=== PATIENT | female | born 1990 | race Caucasian/White ===

== ENCOUNTER 2019-10-12 19:24 | Inpatient (IN) | payer MEDICAID ==
[~2019-10-12] VITALS: Ht 165.1 cm; Wt 73.0 kg
[2019-10-12 19:30] VITALS: BP_SYST 107
--- NOTE | 2019-10-12 19:30 | NUR ---
PT TRIAGED AND PLACED IN WAITING ROOM. PT GIVEN URINE SPECIMEN CUP FOR COLLECTION. NO ACUTE DISTRESS AT THIS TIME.
--- NOTE | 2019-10-12 20:06 | NUR ---
Patient to ER bed 1 to gown for evaluation. Side rails up.
--- NOTE | 2019-10-12 20:16 | NUR ---
PT C/O UPPER RIGHT QUADRANT PAIN THAT STARTED YESTERDAY. PT HX OF END STAGE LIVER CIRRHOSIS. PT MOVED FROM [place] YESTERDAY AND STOPPED TAKING HER LACTULOSE BECAUSE SHE WAS GETTING ON A PLANE. PT LAST BOWEL MOVEMENT WAS YESTERDAY. PT C/O OF NAUSEA, DIZZINESS, LIGHTHEADED, WEAKNESS. PT HAS BEEN RECEIVING CARE IN [place] FOR PAST THREE MONTHS AND NEEDS A LIVER TRANSPLANT, ACCORDING TO PT.
--- NOTE | 2019-10-12 20:30 | NUR ---
# 20 gauge angiocath placed to LAC. Use of asceptic technique. Opsite placed over site. Blood return noted. Blood for lab drawn from site. Flushed with 10 cc of normal saline. No evidence of infiltration noted. Patient tolerated well.
--- NOTE | 2019-10-12 20:32 | NUR ---
LAB AT BEDSIDE
[2019-10-12 20:43] LABS: BILIRUBIN,URINE 3+ (NEGATIVE); BLOOD, URINE 1+ (NEGATIVE); COLOR,URINE ORANGE (YELLOW); GLUCOSE,URINE NEGATIVE (NEGATIVE); KETONES,URINE TRACE (NEGATIVE); LEUKOCYTE ESTERASE ,URINE TRACE (NEGATIVE); NITRITE, URINE NEGATIVE (NEGATIVE); PH,URINE 6.5 (5.0-8.0); PROTEIN URINE NEGATIVE (NEGATIVE); UROBILINOGEN,URINE 0.2 (0.2-1.0)
[2019-10-12] MEDS ORDERED: MORPHINE 2 MG/ML INJ. SYRINGE IVP ONE (21:15)
[2019-10-12 21:17] LABS: BASOPHILS % (AUTO) 0.3 % (0.0-2.0); EOSINOPHILS % (AUTO) 0.4 % (0.0-4.0); HEMATOCRIT 23.6 % (36-48); LYMPHOCYTES # (AUTO) 1.5 K/uL (1.0-5.5); MEAN CORPUSCULAR HEMOGLOBIN 35 pg (27-31); MEAN CORPUSCULAR HGB CONC 34 % (32-36); MEAN CORPUSCULAR VOLUME 103 fL (79.0-98.0); MONOCYTES # (AUTO) 1.1 K/uL (0.0-1.0); MONOCYTES % (AUTO) 11.1 % (1.7-9.3); NEUTROPHILS # (AUTO) 6.9 K/uL (1.8-7.7); NEUTROPHILS % (AUTO) 72.2 % (40.0-70.0); PLATELET COUNT (AUTO) 110 K/uL (130-430); RED CELL DISTRIBUTION WIDTH 24.2 % (9.0-15.0); WHITE BLOOD COUNT (AUTO) 9.6 K/uL (4.8-10.8)
--- NOTE | 2019-10-12 21:25 | NUR ---
pt resting in bed. breathing even and unlabored. vital signs stable.
[2019-10-12 21:43] LABS: CALCIUM 8.5 mg/dL (8.4-11.0); CREATININE 0.53 mg/dL (0.55-1.30); POTASSIUM 3.5 mmol/L (3.5-5.1)
[2019-10-12 21:55] LABS: ALBUMIN 3.4 g/dL (3.4-4.8)
[2019-10-12 22:08] LABS: CLARITY/URINE HAZY (CLEAR)
[2019-10-12 22:29] LABS: BACTERIA,URINE MODERATE /HPF (None Seen); WBC,URINE 0-3 /HPF (0-3)
[2019-10-12 22:41] LABS: TOTAL BILIRUBIN 33.6 mg/dL (0.0-1.0)
--- NOTE | 2019-10-12 22:45 | NUR ---
Critical value of Total bilirubin 33.6
[2019-10-12] MEDS ORDERED: cefTRIAXone 1 GM IVPB PREMIX 50 ML IV ONE ×2 (23:00→23:15)
[2019-10-12] MEDS ORDERED: HYDROcodone/ACETAMIN 5-325 MG TAB (NORCO/ VICODIN) PO ONE (23:00)
[2019-10-12] MEDS ORDERED: PRO40 PO (23:13)
[2019-10-12] MEDS ORDERED: FOLI-43 PO (23:13)
[2019-10-12] MEDS ORDERED: RIFA550T5 PO (23:13)
[2019-10-12] MEDS ORDERED: LACT10SO6 PO (23:13)
[2019-10-12] MEDS ORDERED: PROP80TA4 PO (23:13)
--- NOTE | 2019-10-12 23:13 | NUR ---
medication reconciled does not know dosages.
--- NOTE | 2019-10-12 23:24 | NUR ---
DR. GOEL AT BEDSIDE.
[2019-10-12 23:36] LABS: INR 2.7 (0.8-1.2); PROTHROMBIN TIME 26.8 SECS (9.5-12.5)
--- NOTE | 2019-10-12 23:37 | NUR ---
pt pain 8/10. pt BP is 97/49. norco held per md verbal order.
[2019-10-13] MEDS ORDERED: ALBUMIN HUMAN 5% 250 ML IV ONE (00:30)
[2019-10-13] MEDS ORDERED: FAMOTIDINE PF 20 MG/2 ML VIAL IVP ONE (00:30)
--- NOTE | 2019-10-13 00:34 | NUR ---
Patient's code status is FULL CODE paperwork completed and placed in chart.
[2019-10-13] MEDS ORDERED: PIPERACILLIN/TAZOBACTAM 3.375 GM/VIAL (ZOSYN) IV ONE (00:42)
[2019-10-13] MEDS ORDERED: PHYTONADIONE 10 MG/ML AMP SUBCUT ONE (00:45)
[2019-10-13] MEDS ORDERED: ALBUMIN HUMAN 25% 100 ML IV ONE (01:00)
--- NOTE | 2019-10-13 01:29 | NUR ---
pt resting in bed. breathing even and unlabored. vital signs stable. iv fluids running as ordered. no signs of infiltration.
[2019-10-13] MEDS: D5LR 1,000 ML IV SCH ×2 (02:37→15:30)
--- NOTE | 2019-10-13 02:44 | NUR ---
pt resting in bed. breathing even and unlabored. vital signs stable. iv fluids running as ordered. no signs of infiltration.
[2019-10-13] MEDS ORDERED: FAMOTIDINE PF 20 MG/2 ML VIAL ONE ×2 (02:55→21:12)
--- NOTE | 2019-10-13 03:11 | NUR ---
patient using bedside commode. no lightheadness or dizziness when standing.
--- NOTE | 2019-10-13 03:42 | NUR ---
pt transitioned onto a hospital bed in ER 1.
--- NOTE | 2019-10-13 04:29 | NUR ---
pt resting in bed. breathing even and unlabored. vital signs stable. iv fluids running as ordered. no signs of infiltration.
--- NOTE | 2019-10-13 05:29 | NUR ---
pt resting in bed. breathing even and unlabored. vital signs stable. iv fluids running as ordered. no signs of infiltration.
--- NOTE | 2019-10-13 06:29 | NUR ---
pt resting in bed. breathing even and unlabored. vital signs stable. iv fluids running as ordered. no signs of infiltration.
[2019-10-13] MEDS: PANTOPRAZOLE SODIUM 40 MG TAB PO SCH (06:55)
--- NOTE | 2019-10-13 07:12 | NUR ---
report given to LAURI Bryant for continuation of care.
--- NOTE | 2019-10-13 07:15 | NUR ---
Assumed care of patient, report received from LAURI Helton. Pt currently resting in bed, will continue to monitor.
--- NOTE | 2019-10-13 08:30 | NUR ---
Called pharmacy for morning meds.
[2019-10-13] MEDS ORDERED: LACTULOSE 20 GM/30 ML UDC PO ONE (09:00)
[2019-10-13] MEDS ORDERED: LACTULOSE 20 GM/30 ML UDC PO SCH (09:00)
[2019-10-13] MEDS ORDERED: PROPRANOLOL HCL 10 MG TABLET (INDERAL) PO SCH (09:00)
[2019-10-13] MEDS ORDERED: PROPRANOLOL HCL 10 MG TABLET (INDERAL) PO ONE (09:00)
--- NOTE | 2019-10-13 09:30 | NUR ---
Dr. Shaw at bedside for GI consult.
--- NOTE | 2019-10-13 10:30 | NUR ---
Radiology at bedside for abdominal US.
[2019-10-13] MEDS: PROPRANOLOL HCL 10 MG TABLET (INDERAL) PO SCH (10:54)
--- NOTE | 2019-10-13 11:00 | NUR ---
Inderal held due to low BP
--- NOTE | 2019-10-13 11:00 | NUR ---
Pt refused morning lactulose dose, MD aware.
[2019-10-13] MEDS: THIAMINE HCL 100 MG TABLET PO SCH (11:07)
[2019-10-13] MEDS: FOLIC ACID 1 MG TABLET PO SCH (11:07)
[2019-10-13] MEDS: RIFAXIMIN 550 MG TABLET PO SCH ×2 (11:07→21:39)
[2019-10-13] MEDS: prednisoLONE 15 MG/5 ML UDC PO SCH (11:08)
[2019-10-13] MEDS: FAMOTIDINE PF 20 MG/2 ML VIAL IVP SCH ×2 (11:08→20:58)
--- NOTE | 2019-10-13 11:30 | NUR ---
manager eligibility at bedside
--- NOTE | 2019-10-13 13:45 | NUR ---
DC Planning: Received transfer to [facility] for liver transplant. The pt is in ER holding at this time. I spoke with pt , she is aaox4, ambulatory, jaundice, ascites. She just arrived here yesterday from [place]. No photo ID with her, stated her sister will bring it in. I explained the transfer process to [facility] that , she will need a proof of [facility] residency, currently she has a [place] ID. she will need to apply for [facility] myah. The proof of residency is one of the document required for [facility]. The pt just received the [facility] Presumptive. [facility] transfer ctr # [phone]: does not have liver transplant services. [facility] # [phone], LVM asking for calling back. [facility] transfer ctr for liver transplant # [phone] and was transferred to liver transplant referral line. I LVM asking for a call back myah. coordinator rn admissions # [phone]. [facility] /transplant referral ctr # [phone]. I was transferred to CARMELITA Mishra asking for her call back. Addendum: 10/13/19 at 1654 by Valentina Rand RN [id number]: s/w with Breanna in ED wait room about the transfer process, and requested of proof of [place] residency, ie phone or utility bill with pt name on. Breanna will try to apply the [place] ID foer the pt. Informed that [facility] is willing to review the information for the liver transplant program. >> CM sent the referral package today to CM Charleen, Liver transplant dept. tel # [phone], fax # [phone]. CM to f/u.
[2019-10-13 14:50] LABS: BASOPHILS % (AUTO) 0.1 % (0.0-2.0); EOSINOPHILS % (AUTO) 0.1 % (0.0-4.0); HEMATOCRIT 26.1 % (36-48); HEMOGLOBIN 8.7 g/dL (12.0-16.0); LYMPHOCYTES # (AUTO) 0.8 K/uL (1.0-5.5); LYMPHOCYTES % (AUTO) 10.3 % (20.5-51.5); MEAN CORPUSCULAR HEMOGLOBIN 34 pg (27-31); MEAN CORPUSCULAR HGB CONC 33 % (32-36); MEAN CORPUSCULAR VOLUME 100 fL (79.0-98.0); MONOCYTES # (AUTO) 0.3 K/uL (0.0-1.0); MONOCYTES % (AUTO) 3.5 % (1.7-9.3); NEUTROPHILS # (AUTO) 6.4 K/uL (1.8-7.7); PLATELET COUNT (AUTO) 106 K/uL (130-430); RED CELL DISTRIBUTION WIDTH 24.2 % (9.0-15.0); WHITE BLOOD COUNT (AUTO) 7.5 K/uL (4.8-10.8)
[2019-10-13 14:56] LABS: CALCIUM 8.6 mg/dL (8.4-11.0); CREATININE 0.46 mg/dL (0.55-1.30); POTASSIUM 3.2 mmol/L (3.5-5.1)
[2019-10-13] MEDS: LACTULOSE 20 GM/30 ML UDC PO SCH ×2 (15:00→21:39)
[2019-10-13 15:01] LABS: ALBUMIN 3.3 g/dL (3.4-4.8)
[2019-10-13 15:05] LABS: PROTHROMBIN TIME 29.8 SECS (9.5-12.5)
--- NOTE | 2019-10-13 15:25 | NUR ---
Case management speaking with sister regarding discharge planning. Patient gave permission to send cell phone home with sister, Breanna. Sister stated she will put minutes on it and return with a dumpcart driver for patient to use.
[2019-10-13 15:28] LABS: TOTAL BILIRUBIN 24.8 mg/dL (0.0-1.0)
--- NOTE | 2019-10-13 19:05 | NUR ---
Care of patient endorsed to LAURI Sanchez. Pt currently resting in bed, no distress noted.
--- NOTE | 2019-10-13 19:12 | NUR ---
Patient refused to change a gown- She preferred to wear her T-shirt. She is able to eat dinner.
--- NOTE | 2019-10-13 21:00 | NUR ---
Patient will be admitted to care of Dr. Santa. Admitted to Tele unit. Will go to room 105B. Belongings list completed. Complete and up to date summary report printed. SBAR report to be given at bedside with opportunity for questions.
--- NOTE | 2019-10-13 21:07 | NUR ---
Transfer to Tele via ACLS protocol. Licensed nurse present. IV present no signs or symptoms of infiltration.
--- NOTE | 2019-10-13 21:10 | NUR ---
ADMISSION NOTE Received patient from ER via gurney. Patient admitted with diagnosis of END STAGE RENAL DISEASE. Patient is awake, alert, oriented X 4. Patient oriented to hospital room, call light, toileting, pain management and safety-teach back done. Patient informed that ANGELA will be HER nurse and that their room number is 105B. Personal belongings checked and Belongings List documented. Call light within reach.
[2019-10-13 21:26] VITALS: BP_SYST 107
--- NOTE | 2019-10-13 23:00 | NUR ---
ROUNDS pt is asleep at this time, no s/s of acute distress noted. safety and fall precautions in place. will continue to monitor.
[2019-10-14] VITALS: BP_SYST 100
--- NOTE | 2019-10-14 01:00 | NUR ---
ROUNDS pt still asleep, no s/s of discomfort noted. fall and safety precautions maintained, will continue to monitor.
--- NOTE | 2019-10-14 03:00 | NUR ---
ROUNDS pt still asleep at this time, no signs of discomfort noted. fall and safety precautions in place, will continue to monitor.
--- NOTE | 2019-10-14 05:00 | NUR ---
ROUNDS pt still asleep at this time, no signs of acute distress noted. fall and safety precautions maintained, will continue to monitor.
[2019-10-14] MEDS: PANTOPRAZOLE SODIUM 40 MG TAB PO SCH (06:04)
[2019-10-14] MEDS: D5LR 1,000 ML IV SCH (06:04)
--- NOTE | 2019-10-14 06:24 | NUR ---
CLOSING NOTES pt still resting in bed at this time, no signs of acute distress noted. hob elevated, breathing is unlabored, pt on room air, tolerating well. no c/o pain at this time. iv site is patent, no signs of infiltration and infection noted. ivf infusing well. bed locked and at lowest position. pt refused to keep bed alarm on, encouraged pt throughout shift, educated pt on the benefits and purpose of having bed alarm on for safety. call light with pt, verbalized and demonstrated back proper use of call light if help is needed. all needs met throughout shift, will continue to monitor until report is given to day shift rn.
[2019-10-14 08:00] VITALS: BP_SYST 102
--- NOTE | 2019-10-14 08:00 | NUR ---
Note Pt sitting up in bed to eat her breakfast. No SOB/resp distress or pain/discomfort noted at this time. IV in left AC intact and patent infusing IVF's well. Pt also on the phone speaking to family/friend. No needs noted at this time. Call light within reach.
[2019-10-14] MEDS: RIFAXIMIN 550 MG TABLET PO SCH ×2 (08:41→20:02)
[2019-10-14] MEDS: THIAMINE HCL 100 MG TABLET PO SCH (08:42)
[2019-10-14] MEDS: FOLIC ACID 1 MG TABLET PO SCH (08:42)
[2019-10-14] MEDS: FAMOTIDINE PF 20 MG/2 ML VIAL IVP SCH ×2 (08:42→20:01)
[2019-10-14] MEDS: PROPRANOLOL HCL 10 MG TABLET (INDERAL) PO SCH ×2 (08:42→20:02)
[2019-10-14] MEDS: LACTULOSE 20 GM/30 ML UDC PO SCH ×3 (08:42→20:01)
[2019-10-14] MEDS: prednisoLONE 15 MG/5 ML UDC PO SCH (08:44)
--- NOTE | 2019-10-14 10:30 | NUR ---
Note Pt resting in bed. Denies any severe abdominal pain/discomfort all shift. No needs noted at this time. Call light within reach.
[2019-10-14 12:00] VITALS: BP_SYST 124
[2019-10-14] MEDS ORDERED: MULTIVITS,CA,MINERALS/IRON/FA 1 TABLET PO ONE (14:15)
[2019-10-14] MEDS ORDERED: CHOLECALCIFEROL (VITAMIN D3) 2,000 UNIT TABLET PO ONE (14:15)
[2019-10-14] MEDS ORDERED: POTASSIUM CHLORIDE 20 MEQ TAB.PRT.SR PO ONE (14:15)
[2019-10-14] MEDS ORDERED: PHYTONADIONE Non-Formulary 5 MG TABLET PO ONE (14:15)
--- NOTE | 2019-10-14 14:16 | NUR ---
Case mgt: I called [facility] at [phone] Option#3 to f/u on referral--I s/w Caity who said Emma is their cm today and she has left a message for Emma to call me back--UTRNER RN
[2019-10-14] MEDS ORDERED: PHYTONADIONE (Vitamin K) Oral Solution PO ONE (15:00)
--- NOTE | 2019-10-14 15:00 | NUR ---
Note Dr Santa on the floor assessing pt and answering questions/concerns at this time. Order for dc tele received at this time, tele unit dc'd and returned to fuel storage technician. Pt ambulates to restroom with steady gait and no needs noted at this time. Call light within reach.
[2019-10-14 16:00] VITALS: BP_SYST 110
--- NOTE | 2019-10-14 18:10 | NUR ---
Note Pt ambulating in room all shift with steady gait. No SOB/resp distress or severe abdominal pain/discomfort noted all shift. IV in left AC intact and patent. Pt was checked on q1' and PRN all shift for need and care. Pt was maintained with safety precautions all shift. No needs noted at this time. Call light within reach. Pt sitting up in bed eating her dinner at this time. Pt's bed in low position all shift.
--- NOTE | 2019-10-14 19:15 | NUR ---
OPENING NOTE PATIENT IN BED, AOX4, NO S/S OF ACUTE DISTRESS NOTED. BREATHING EVEN AND UNLABORED. IV SITE PATENT, NO SIGNS OF INFILTRATION OR INFECTION NOTED. CALL LIGHT WITH PATIENT. WILL CONTINUE TO MONITOR.
[2019-10-14 20:00] VITALS: BP_SYST 104
--- NOTE | 2019-10-14 23:00 | NUR ---
ROUNDS PATIENT ASLEEP, NO SIGNS OF DISCOMFORT NOTED. CALL LIGHT WITH PATIENT.
[2019-10-15] VITALS: BP_SYST 108
--- NOTE | 2019-10-15 02:30 | NUR ---
ROUNDS PATIENT IN BED SLEEPING AT THIS TIME. NO S/S OF ACUTE DISTRESS. CALL LIGHT WITH PATIENT.
[2019-10-15] MEDS: PANTOPRAZOLE SODIUM 40 MG TAB PO SCH (06:14)
--- NOTE | 2019-10-15 06:54 | NUR ---
CLOSING NOTE PATIENT IN BED, AWAKE AT THIS TIME. NO S/S OF ACUTE DISTRESS, DENIES ANY PAIN. BREATHING IS EVEN AND UNLABORED. IV SITE IS PATENT, NO SIGNS OF INFILTRATION OR INFECTION NOTED. ALL NEEDS MET THROUGHOUT SHIFT. WILL CONTINUE TO MONITOR UNTIL PATIENT CARE IS ENDORSED TO ONCOMING DAYSHIFT NURSE
--- NOTE | 2019-10-15 07:20 | NUR ---
opening note received bedside SBAR from night RN, patient in bed, respirations even non labored, bed in low and locked position, call light within reach
[2019-10-15 07:33] LABS: PROTHROMBIN TIME 29.8 SECS (9.5-12.5)
[2019-10-15 07:42] LABS: ALBUMIN 3.1 g/dL (3.4-4.8); CALCIUM 8.8 mg/dL (8.4-11.0); CREATININE 0.51 mg/dL (0.55-1.30); POTASSIUM 3.6 mmol/L (3.5-5.1)
[2019-10-15 08:00] VITALS: BP_SYST 102
[2019-10-15 08:03] LABS: BASOPHILS % (AUTO) 0.2 % (0.0-2.0); HEMATOCRIT 25.8 % (36-48); HEMOGLOBIN 8.6 g/dL (12.0-16.0); LYMPHOCYTES # (AUTO) 2.1 K/uL (1.0-5.5); LYMPHOCYTES % (AUTO) 12.8 % (20.5-51.5); MEAN CORPUSCULAR HEMOGLOBIN 34 pg (27-31); MEAN CORPUSCULAR HGB CONC 34 % (32-36); MEAN CORPUSCULAR VOLUME 101 fL (79.0-98.0); NEUTROPHILS # (AUTO) 12.3 K/uL (1.8-7.7); PLATELET COUNT (AUTO) 137 K/uL (130-430); RED BLOOD CELL COUNT(AUTO) 2.56 MIL/uL (4.2-6.2); RED CELL DISTRIBUTION WIDTH 24.2 % (9.0-15.0); TOTAL BILIRUBIN 23.5 mg/dL (0.0-1.0); WHITE BLOOD COUNT (AUTO) 16.3 K/uL (4.8-10.8)
--- NOTE | 2019-10-15 08:30 | NUR ---
critical lab paged Dr. Santa, for critical lab: Total bilirubin 23.5
[2019-10-15] MEDS: LACTULOSE 20 GM/30 ML UDC PO SCH ×3 (09:06→20:41)
[2019-10-15] MEDS: POTASSIUM CHLORIDE 20 MEQ TAB.PRT.SR PO SCH (09:06)
[2019-10-15] MEDS: FOLIC ACID 1 MG TABLET PO SCH (09:06)
[2019-10-15] MEDS: FAMOTIDINE PF 20 MG/2 ML VIAL IVP SCH ×2 (09:06→20:41)
[2019-10-15] MEDS: RIFAXIMIN 550 MG TABLET PO SCH ×2 (09:06→20:41)
[2019-10-15] MEDS: THIAMINE HCL 100 MG TABLET PO SCH (09:07)
[2019-10-15] MEDS: PROPRANOLOL HCL 10 MG TABLET (INDERAL) PO SCH ×2 (09:07→20:42)
[2019-10-15] MEDS: MULTIVITS,CA,MINERALS/IRON/FA 1 TABLET PO SCH (09:07)
[2019-10-15] MEDS: CHOLECALCIFEROL (VITAMIN D3) 2,000 UNIT TABLET PO SCH (09:08)
[2019-10-15] MEDS: prednisoLONE 15 MG/5 ML UDC PO SCH (09:09)
--- NOTE | 2019-10-15 09:15 | NUR ---
nurse note administered medication, removed IV from right forearm, infiltrated, flushed IV in left, flushed freely, patient requested to shower.
--- NOTE | 2019-10-15 10:30 | NUR ---
nurse note patient showered, no signs of distress, patient stated no pain
--- NOTE | 2019-10-15 10:45 | NUR ---
nurse note paged Dr. Santa regarding critical lab
[2019-10-15 11:33] VITALS: BP_SYST 103
--- NOTE | 2019-10-15 11:35 | NUR ---
MD ROUNDS DR GOEL BEDSIDE EXAMINING PATIENT
--- NOTE | 2019-10-15 12:17 | NUR ---
NURSE NOTE EDUCATED PATIENT REGARDING INR, INFORMED AT INCREASED RISK FOR BLEEDING, EDUCATED PATIENT REGARDING INCREASED WBC'S, (PER DR GOEL) DUE TO STEROID MEDICATIONS, INFORMED PATIENT THAT SHE IS AT INCREASED RISK FOR INFECTION. PATIENT VERBALIZED UNDERSTANDING, NO QUESTIONS ASKED.
--- NOTE | 2019-10-15 12:30 | NUR ---
nurse note called [facility], case management, answered by inside sales professional center, asked for Caity, per electric car operator, only taking emergency phone calls
--- NOTE | 2019-10-15 14:05 | NUR ---
nurse note patient in bed, eyes closed, bed in low and locked position, call light within reach
--- NOTE | 2019-10-15 14:30 | NUR ---
Dietitian Recommendations *Continue 2gmNa diet *Continue MVI Coverage *Consider a Thiamine supplement Please see Nutrition Assessment for further details. LT, RD
--- NOTE | 2019-10-15 15:26 | NUR ---
MD ROUNDS DR CHAU, BEDSIDE EXAMINING PATIENT
[2019-10-15 15:27] VITALS: BP_SYST 94
--- NOTE | 2019-10-15 16:44 | NUR ---
NURSE NOTE PROVIDED PATIENT WITH SANDWICH AND JUICE, PATIENT IN BED, RESPIRATIONS EVEN, NON LABORED, BED IN LOW AND LOCKED POSITION, CALL LIGHT WITHIN REACH, PATIENT DENIES ANY PAIN OR DISCOMFORT
--- NOTE | 2019-10-15 17:00 | NUR ---
nurse note patient complaining of anxiety, paged Dr. Santa
--- NOTE | 2019-10-15 17:30 | NUR ---
Nurse note Informed Dr. Santa that patient is complaining of anxiety, new orders received
--- NOTE | 2019-10-15 19:15 | NUR ---
Closing note Provided bedside SBAR to night RN, patient in bed, respirations even, non labored, bed in low and locked position, call light within reach, endorsed care to night RN
--- NOTE | 2019-10-15 19:15 | NUR ---
OPENING NOTE BEDSIDE REPORT RECEIVED FROM DAYSHIFT NURSE. PATIENT RECEIVED LYING IN BED, NO S/S OF ACUTE DISTRESS NOTED. BREATHING EVEN AND UNLABORED. IV SITE IS PATENT, NO SIGNS OF INFILTRATION OR INFECTION NOTED. PATIENT DENIES PAIN, NO SOB. CALL LIGHT WITH PATIENT. WILL CONTINUE TO MONITOR.
[2019-10-15] MEDS: LORazepam 1 MG TABLET PO PRN (19:30)
[2019-10-15 20:00] VITALS: BP_SYST 108
--- NOTE | 2019-10-15 21:00 | NUR ---
ROUNDS PATIENT IN BED, ON HER PHONE. NO SIGNS OF DISCOMFORT. CALL LIGHT WITH PATIENT. WILL CONTINUE TO MONITOR.
--- NOTE | 2019-10-15 23:00 | NUR ---
ROUNDS PATIENT ASLEEP AT THIS TIME. NO S/S OF ACUTE DISTRESS NOTED. BREATHING EVEN AND UNLABORED. CALL LIGHT WITH PATIENT. WILL CONTINUE TO MONITOR.
[2019-10-16] VITALS: BP_SYST 104
--- NOTE | 2019-10-16 01:00 | NUR ---
ROUNDS PATIENT IN BED SLEEPING. NO CHANGE IN CONDITION. WILL CONTINUE TO MONITOR.
--- NOTE | 2019-10-16 03:00 | NUR ---
ROUNDS PATIENT IN BED ASLEEP AT THIS TIME. NO CHANGE IN CONDITION. WILL CONTINUE TO MONITOR.
--- NOTE | 2019-10-16 05:00 | NUR ---
ROUNDS PATIENT IN BED ASLEEP AT THIS TIME. NO SIGNS OF DISCOMFORT. CALL LIGHT WITH PATIENT. WILL CONTINUE TO MONITOR.
--- NOTE | 2019-10-16 06:50 | NUR ---
CLOSING NOTE PATIENT IN BED, ASLEEP AT THIS TIME. NO S/S OF ACUTE DISTRESS NOTED. BREATHING IS EVEN AND UNLABORED. IV SITE IS PATENT, NO SIGNS OF INFILTRATION OR INFECTION NOTED. ALL NEEDS MET THROUGHOUT SHIFT. FALL AND SAFETY PRECAUTIONS MAINTAINED THROUGHOUT SHIFT. WILL CONTINUE TO MONITOR UNTIL PATIENT CARE IS ENDORSED TO ONCOMING DAYSHIFT NURSE.
[2019-10-16] MEDS: PANTOPRAZOLE SODIUM 40 MG TAB PO SCH (07:33)
[2019-10-16 07:51] LABS: INR 2.8 (0.8-1.2); PROTHROMBIN TIME 27.8 SECS (9.5-12.5)
[2019-10-16 08:03] LABS: BASOPHILS % (AUTO) 0.1 % (0.0-2.0); EOSINOPHILS % (AUTO) 0.1 % (0.0-4.0); HEMOGLOBIN 8.7 g/dL (12.0-16.0); LYMPHOCYTES # (AUTO) 2.8 K/uL (1.0-5.5); LYMPHOCYTES % (AUTO) 15.2 % (20.5-51.5); MEAN CORPUSCULAR HEMOGLOBIN 34 pg (27-31); MEAN CORPUSCULAR HGB CONC 34 % (32-36); MEAN CORPUSCULAR VOLUME 100 fL (79.0-98.0); MONOCYTES # (AUTO) 2.1 K/uL (0.0-1.0); MONOCYTES % (AUTO) 11.5 % (1.7-9.3); NEUTROPHILS # (AUTO) 13.4 K/uL (1.8-7.7); NEUTROPHILS % (AUTO) 73.1 % (40.0-70.0); PLATELET COUNT (AUTO) 146 K/uL (130-430); RED BLOOD CELL COUNT(AUTO) 2.59 MIL/uL (4.2-6.2); RED CELL DISTRIBUTION WIDTH 23.2 % (9.0-15.0); WHITE BLOOD COUNT (AUTO) 18.3 K/uL (4.8-10.8)
[2019-10-16 08:06] LABS: ALBUMIN 2.9 g/dL (3.4-4.8); CALCIUM 8.3 mg/dL (8.4-11.0); CREATININE 0.51 mg/dL (0.55-1.30); POTASSIUM 3.3 mmol/L (3.5-5.1)
[2019-10-16 08:33] LABS: TOTAL BILIRUBIN 21.4 mg/dL (0.0-1.0)
--- NOTE | 2019-10-16 09:15 | NUR ---
DC PLANNING Called & left msg with [facility], ph [phone], to f/u if able to take pt.
[2019-10-16 09:29] VITALS: BP_SYST 96
[2019-10-16] MEDS: RIFAXIMIN 550 MG TABLET PO SCH ×2 (09:40→22:32)
[2019-10-16] MEDS: LORazepam 1 MG TABLET PO PRN (09:40)
[2019-10-16] MEDS: MULTIVITS,CA,MINERALS/IRON/FA 1 TABLET PO SCH (09:40)
[2019-10-16] MEDS: THIAMINE HCL 100 MG TABLET PO SCH (09:40)
[2019-10-16] MEDS: PROPRANOLOL HCL 10 MG TABLET (INDERAL) PO SCH ×2 (09:41→21:00)
[2019-10-16] MEDS: CHOLECALCIFEROL (VITAMIN D3) 2,000 UNIT TABLET PO SCH (09:41)
[2019-10-16] MEDS: FAMOTIDINE PF 20 MG/2 ML VIAL IVP SCH ×2 (09:41→22:33)
[2019-10-16] MEDS: LACTULOSE 20 GM/30 ML UDC PO SCH ×3 (09:41→22:33)
[2019-10-16] MEDS: FOLIC ACID 1 MG TABLET PO SCH (09:41)
[2019-10-16] MEDS: POTASSIUM CHLORIDE 20 MEQ TAB.PRT.SR PO SCH (09:41)
[2019-10-16] MEDS: prednisoLONE 15 MG/5 ML UDC PO SCH (09:46)
--- NOTE | 2019-10-16 14:08 | NUR ---
DC PLANNING Received call from Charleen @ [facility] that not able to take pt for Liver transplant eval due to social issues & per GI notes recent drinking. Called [facility], ph [phone], & spoke with Kristi Director [place], direct ph [phone] fax [phone]. States to fax referral & will review with MD. States if does take pt will need Covid result prior, called & informed charge nurse need Covid testing in case accepted. Faxed pt info requested. Addendum: 10/16/19 at 1629 by Cristine Vasquez RN Received call back from Kristi @ [facility], states Dr Cordell Jensen Has Medically accepted pt pending: Financial clearance, Need Covid results, & need Transfer back agreement. States that Transfer center will call for transfer back agreement. Received call from Rafael @ [facility] transfer ancram that needs administration signature on transfer back agreement, will fax to dept. Have not received fax with transfer back agreement. Updated pt's nurse, will call MD for Covid test.
--- NOTE | 2019-10-16 19:09 | NUR ---
Handoff with night team registered nurse, [place]. Lukasz Archibald RN
[2019-10-16 20:00] VITALS: BP_SYST 97
[2019-10-17] VITALS (7 sets, daily range): BP systolic 93–115
[2019-10-17] MEDS: PANTOPRAZOLE SODIUM 40 MG TAB PO SCH (07:01)
[2019-10-17] MEDS: LORazepam 1 MG TABLET PO PRN ×2 (07:15→15:43)
--- NOTE | 2019-10-17 08:00 | NUR ---
ASSUMPTION OF CARE: RECEIVED PT A/A/OX4, DX:PAIN/DISCOMFORT, R/T END STAGE LIVER DISEASE, VSS, AFEBRILE, NO C/O PAIN OR DISCOMFORT AT THIS TIME, BREATH SOUNDS ARE CLEAR, BREATHING UNLABORED, IV SITE INTACT, PATENT, NO REDNESS OR SWELLING, ORIENTED TO UNIT, CALL LIGHT PLACED WITHIN REACH, WILL CONT' TO MONITOR AND ASSESS.
[2019-10-17] MEDS: RIFAXIMIN 550 MG TABLET PO SCH ×2 (10:39→21:28)
[2019-10-17] MEDS: CHOLECALCIFEROL (VITAMIN D3) 2,000 UNIT TABLET PO SCH (10:39)
[2019-10-17] MEDS: POTASSIUM CHLORIDE 20 MEQ TAB.PRT.SR PO SCH (10:39)
[2019-10-17] MEDS: FAMOTIDINE PF 20 MG/2 ML VIAL IVP SCH ×2 (10:39→21:27)
[2019-10-17] MEDS: FOLIC ACID 1 MG TABLET PO SCH (10:40)
[2019-10-17] MEDS: PROPRANOLOL HCL 10 MG TABLET (INDERAL) PO SCH ×2 (10:40→21:00)
[2019-10-17] MEDS: LACTULOSE 20 GM/30 ML UDC PO SCH ×3 (10:41→21:27)
[2019-10-17] MEDS: MULTIVITS,CA,MINERALS/IRON/FA 1 TABLET PO SCH (10:41)
[2019-10-17] MEDS: THIAMINE HCL 100 MG TABLET PO SCH (10:41)
[2019-10-17] MEDS: prednisoLONE 15 MG/5 ML UDC PO SCH (10:44)
--- NOTE | 2019-10-17 10:57 | NUR ---
[place]: [facility]/Liver transplant ctr # [phone]: the pt is medically accepted by dr. Cordell Jensen, but is denied financially. The pt will need proof of [facility] residency and [facility]. Then, to call her back for admission review. Yi, pt's sister made aware, stated she will get the required documents for the pt. The pt's certified admission letter provided for her to orange picker today. Addendum: 10/17/19 at 1225 by Valentina Rand RN >> LVM to José/Kike: requesting assistance to change the [facility] presumptive to straight [facility].
--- NOTE | 2019-10-17 11:08 | NUR ---
Note As per Valentina THOMASON patient requested letter for work verifying admission dates. Letter provided.
--- NOTE | 2019-10-17 12:21 | NUR ---
[facility] transfer [facility] # [phone], fax # [phone], faxed the referral inquiry attn to sophia Silverio. CM to f/u . Addendum: 10/18/19 at 1410 by Valentina Rand RN Late Entry: spoke with Javier/Rudolph to assist with [facility] eligibility screening. Currently the pt has [facility] presumptive. This is to help patient get accepting for the liver transplant program at [facility] or [place]. Per Gretchen, he would start the request today. The process may take about 3 weeks for approval decision.
--- NOTE | 2019-10-17 21:14 | NUR ---
Pt's BP 93/47, Pulse = 82. Inderal held for low BP. CN aware. Pt already had Ativan earlier.
[2019-10-18 01:11] VITALS: BP_SYST 110
[2019-10-18 07:03] LABS: BASOPHILS # (AUTO) 0.1 K/uL (0.0-0.2); BASOPHILS % (AUTO) 0.4 % (0.0-2.0); EOSINOPHILS # (AUTO) 0.1 K/uL (0.0-0.4); EOSINOPHILS % (AUTO) 0.3 % (0.0-4.0); HEMATOCRIT 26.5 % (36-48); HEMOGLOBIN 8.9 g/dL (12.0-16.0); LYMPHOCYTES # (AUTO) 2.9 K/uL (1.0-5.5); LYMPHOCYTES % (AUTO) 14.8 % (20.5-51.5); MEAN CORPUSCULAR HEMOGLOBIN 34 pg (27-31); MEAN CORPUSCULAR HGB CONC 34 % (32-36); MEAN CORPUSCULAR VOLUME 100 fL (79.0-98.0); MONOCYTES # (AUTO) 1.9 K/uL (0.0-1.0); MONOCYTES % (AUTO) 9.7 % (1.7-9.3); NEUTROPHILS # (AUTO) 14.8 K/uL (1.8-7.7); NEUTROPHILS % (AUTO) 74.8 % (40.0-70.0); PLATELET COUNT (AUTO) 141 K/uL (130-430); RED BLOOD CELL COUNT(AUTO) 2.65 MIL/uL (4.2-6.2); WHITE BLOOD COUNT (AUTO) 19.8 K/uL (4.8-10.8)
[2019-10-18] MEDS: PANTOPRAZOLE SODIUM 40 MG TAB PO SCH (07:05)
[2019-10-18 07:20] LABS: INR 2.7 (0.8-1.2)
[2019-10-18 07:26] LABS: ALBUMIN 2.7 g/dL (3.4-4.8); CALCIUM 8.2 mg/dL (8.4-11.0); CREATININE 0.45 mg/dL (0.55-1.30); POTASSIUM 3.2 mmol/L (3.5-5.1)
[2019-10-18 07:31] LABS: TOTAL BILIRUBIN 19.8 mg/dL (0.0-1.0)
[2019-10-18 08:30] VITALS: BP_SYST 102
[2019-10-18] MEDS: CHOLECALCIFEROL (VITAMIN D3) 2,000 UNIT TABLET PO SCH (09:31)
[2019-10-18] MEDS: FAMOTIDINE PF 20 MG/2 ML VIAL IVP SCH ×2 (09:31→22:21)
[2019-10-18] MEDS: LACTULOSE 20 GM/30 ML UDC PO SCH ×3 (09:32→22:21)
[2019-10-18] MEDS: PROPRANOLOL HCL 10 MG TABLET (INDERAL) PO SCH ×2 (09:32→21:00)
[2019-10-18] MEDS: FOLIC ACID 1 MG TABLET PO SCH (09:33)
[2019-10-18] MEDS: POTASSIUM CHLORIDE 20 MEQ TAB.PRT.SR PO SCH (09:33)
[2019-10-18] MEDS: prednisoLONE 15 MG/5 ML UDC PO SCH (09:34)
[2019-10-18] MEDS: THIAMINE HCL 100 MG TABLET PO SCH (09:36)
[2019-10-18] MEDS: LORazepam 1 MG TABLET PO PRN ×2 (09:36→17:23)
[2019-10-18] MEDS: MULTIVITS,CA,MINERALS/IRON/FA 1 TABLET PO SCH (09:37)
[2019-10-18] MEDS: RIFAXIMIN 550 MG TABLET PO SCH ×2 (09:37→22:23)
[2019-10-18 12:27] VITALS: BP_SYST 99
--- NOTE | 2019-10-18 13:51 | NUR ---
[facility] transfer [facility]: Skyler Mejia: the case is being evaluate. To determine acceptance, her md wants to speak with patient and sister/María directly. María/sister and pt's contact numbers provided. -- CM will f/u.
[2019-10-18] MEDS ORDERED: POTASSIUM CHLORIDE 20 MEQ TAB.PRT.SR PO ONE (15:45)
[2019-10-18 16:36] VITALS: BP_SYST 104
[2019-10-18 19:13] VITALS: BP_SYST 105
--- NOTE | 2019-10-18 20:00 | NUR ---
James Santa s/w Davina
[2019-10-18] MEDS: ONDANSETRON HCL 4 MG/2 ML VIAL IVP PRN (20:35)
--- NOTE | 2019-10-18 22:00 | NUR ---
Inderal held for low BP - 105/63. Will continue to monitor for any changes.
[2019-10-18] MEDS: MAGNESIUM OXIDE 400 MG TABLET PO SCH (22:22)
[2019-10-19 00:08] VITALS: BP_SYST 108
[2019-10-19] MEDS: PANTOPRAZOLE SODIUM 40 MG TAB PO SCH (06:26)
[2019-10-19] MEDS: LORazepam 1 MG TABLET PO PRN ×2 (06:26→16:02)
[2019-10-19] MEDS: ONDANSETRON HCL 4 MG/2 ML VIAL IVP PRN (06:35)
--- NOTE | 2019-10-19 06:45 | NUR ---
End of Shift Note: Pt c/o anxiety and nausea. Pt given Ativan and 0700 med Protonix. Pt then was given, by her request, Zofran IVP to help with controlling the nausea. Pt also looking forward to going to her new destination today. Pt condition remains stable.
[2019-10-19 07:02] LABS: BASOPHILS % (AUTO) 0.1 % (0.0-2.0); EOSINOPHILS % (AUTO) 0.2 % (0.0-4.0); HEMATOCRIT 26.5 % (36-48); LYMPHOCYTES # (AUTO) 3.3 K/uL (1.0-5.5); LYMPHOCYTES % (AUTO) 16.1 % (20.5-51.5); MEAN CORPUSCULAR HEMOGLOBIN 35 pg (27-31); MEAN CORPUSCULAR HGB CONC 34 % (32-36); MEAN CORPUSCULAR VOLUME 102 fL (79.0-98.0); MONOCYTES # (AUTO) 1.9 K/uL (0.0-1.0); MONOCYTES % (AUTO) 9.5 % (1.7-9.3); NEUTROPHILS % (AUTO) 74.1 % (40.0-70.0); PLATELET COUNT (AUTO) 136 K/uL (130-430); RED CELL DISTRIBUTION WIDTH 23.5 % (9.0-15.0); WHITE BLOOD COUNT (AUTO) 20.2 K/uL (4.8-10.8)
[2019-10-19 07:19] LABS: INR 2.6 (0.8-1.2); PROTHROMBIN TIME 25.9 SECS (9.5-12.5)
[2019-10-19 07:28] LABS: ALBUMIN 2.6 g/dL (3.4-4.8); CALCIUM 8.2 mg/dL (8.4-11.0); CREATININE 0.5 mg/dL (0.55-1.30); POTASSIUM 3.4 mmol/L (3.5-5.1)
[2019-10-19 07:32] VITALS: BP_SYST 104
[2019-10-19 08:19] LABS: TOTAL BILIRUBIN 19.2 mg/dL (0.0-1.0)
[2019-10-19] MEDS ORDERED: POTASSIUM CHLORIDE 20 MEQ TAB.PRT.SR PO SCH (09:00)
[2019-10-19] MEDS: LACTULOSE 20 GM/30 ML UDC PO SCH ×2 (09:07→15:59)
[2019-10-19] MEDS: FOLIC ACID 1 MG TABLET PO SCH (09:07)
[2019-10-19] MEDS: CHOLECALCIFEROL (VITAMIN D3) 2,000 UNIT TABLET PO SCH (09:07)
[2019-10-19] MEDS: MULTIVITS,CA,MINERALS/IRON/FA 1 TABLET PO SCH (09:07)
[2019-10-19] MEDS: FAMOTIDINE PF 20 MG/2 ML VIAL IVP SCH (09:07)
[2019-10-19] MEDS: THIAMINE HCL 100 MG TABLET PO SCH (09:07)
[2019-10-19] MEDS: MAGNESIUM OXIDE 400 MG TABLET PO SCH (09:07)
[2019-10-19] MEDS: PROPRANOLOL HCL 10 MG TABLET (INDERAL) PO SCH (09:08)
--- NOTE | 2019-10-19 09:08 | NUR ---
[place]: Per Jackie, the pt is accepted under dr. Terrence Mills. She requests the signed return agreement form faxing back to # [phone] attn: Laura. Mandeep to consult with JAY Jackson for the transfer approval.Dr Santa made aware. Addendum: 10/19/19 at 1045 by Valentina Rand RN >> Called sister/María # [phone], unable to leave message, VM is full. >>Called # [phone], s/w sister/Breanna, informed pt is accepting at [place]. Breanna will ask María to call me back to discuss dcp. Addendum: 10/19/19 at 1154 by Valentina Rand RN >> Informed pt about the DCP to [facility], the pt agreed and signed the transfer back agreement. She aware that she may transfer back to [facility] for continuation of care as needed. Bella and dr. Santa approved the transfer and signed the Repatriation form as well.
[2019-10-19] MEDS: RIFAXIMIN 550 MG TABLET PO SCH (09:17)
[2019-10-19] MEDS: prednisoLONE 15 MG/5 ML UDC PO SCH (09:17)
[2019-10-19 11:41] VITALS: BP_SYST 102
[2019-10-19] MEDS ORDERED: POTASSIUM CHLORIDE 20 MEQ TAB.PRT.SR PO ONE (12:30)
--- NOTE | 2019-10-19 14:09 | NUR ---
Delivery of [place] paperwork original with MD signature to [employer], Erick. Lukasz Archibald RN
[2019-10-19 15:30] VITALS: BP_SYST 110
--- NOTE | 2019-10-19 18:07 | NUR ---
HANDOFF REPORT WITH LAURI PALOMINO, [facility]. MIYA Archibald RN
--- NOTE | 2019-10-19 18:14 | NUR ---
RECEIVED CALL FROM [facility] FOR [facility] [address], TO BE ACCEPTED AFTER 1900, Bird BRINK IS THE ADMITTING MD. ARRANGED WITH [facility] ONE S AMBULANCE ROUND TRIP, SOIL SCIENCE TECHNICAL OFFICER TIME IS BETWEEN 2029 TO 2099. COMING BACK TO [facility] ON WILL CALL. PLS REMIND THE ACCEPTING NURSE THAT SHOULD PT COME BACK TO [facility], PLS CALL [facility] FOR BLS TRANSPORT BACK TO [facility]. SPOKE TO WILL AT [facility].
--- NOTE | 2019-10-19 18:37 | NUR ---
Page to Doctor Arina MD, to notify of transfer at 8 p.m. Lukasz Archibald RN
--- NOTE | 2019-10-19 18:53 | NUR ---
Patient handoff with night team registered nurse. Lukasz Nunes RN
--- NOTE | 2019-10-19 19:30 | NUR ---
Opening notes Received report. Patient is resting in bed, no signs of distress noted. Breathing even and unlabored on room air. IV patent and intact, saline locked. Patient wanting to shower. Patient assisted to shower room. Patient able to bathe self. No other needs. Instructed patient to pull cord on wall if assistance is needed. Patient verbalized understanding.
--- NOTE | 2019-10-19 20:00 | NUR ---
RN rounds Patient resting in bed, awaiting transfer. No signs of distress noted. Breathing even and unlabored. Patient given jello. No other needs. Call light with the patient. Safety precautions in place.
--- NOTE | 2019-10-19 22:52 | NUR ---
Transfer Patient transferred to [facility] by BLS. No signs of distress noted. Breathing even and unlabored. Patient to be transferred with LAC 20 gauge IV, patent and intact, saline locked. Patient in stable condition. all belongings sent with patient.
== END 2019-10-19 23:15 | disposition short-term general hospital (02) | DRG 279 ==
LOC: SED 19:24 → STU 23:06 → SMU 10-14 15:13
PROVIDERS: ADMIT Internal Medicine; ATTEND Internal Medicine
DX: K72.90 Hepatic failure, unspecified without coma (principal); K70.30 Alcoholic cirrhosis of liver without ascites; I85.00 Esophageal varices without bleeding; R65.11 Systemic inflammatory response syndrome (SIRS) of non-infectious origin with acute organ dysfunction; K70.10 Alcoholic hepatitis without ascites; Z20.828 Contact with and (suspected) exposure to other viral communicable diseases; E87.2 Acidosis; E72.20 Disorder of urea cycle metabolism, unspecified; E87.6 Hypokalemia; E44.1 Mild protein-calorie malnutrition; D63.8 Anemia in other chronic diseases classified elsewhere; Z68.26 Body mass index [BMI] 26.0-26.9, adult; Z76.82 Awaiting organ transplant status; Z79.899 Other long term (current) drug therapy; Z88.8 Allergy status to other drugs, medicaments and biological substances
CPT/HCPCS: 36415; 71045; 76700-TC; 80053; 81000-TC; 82140-TC; 83605; 83690-TC; 83735-TC; 84702-TC; 84703; 85025; 85610-TC; 85730-TC; 86886; 86900; 86901; 87086; 87186-TC; 96365; 96367; 96375; 99285; G0378; G0482; J0696; J2270; J2405; J2543; J3430; J3490; J7120; P9041; U0003-CS